=== PATIENT | female | born 1945 | race Caucasian/White ===

== ENCOUNTER 2017-07-09 10:54 | Day surgery (SDC) | payer MEDICARE, OTHER ==
[~2017-07-09 10:54] MED LIST: CEFAZOLIN 2 Gram 2 GM/50 ML BAG IVPB ONE; FAMOTIDINE 20MG TABLET PO ONE; METOCLOPRAMIDE 10 MG TABLET PO ONE
[2017-07-09] MEDS ORDERED: MIDAZOLAM HCL 2MG/2ML VIAL IV ONE (10:55)
[2017-07-09] MEDS ORDERED: METHYLPREDNISOLONE 40MG/VIAL IM ONE (10:55)
[2017-07-09] MEDS ORDERED: SUCCINYLCHOLINE 20 MG/ML 10ML IVP ONE (10:55)
[2017-07-09] MEDS ORDERED: ONDANSETRON HCL IV 4 MG/2 ML VIAL IVP ONE (10:55)
[2017-07-09] MEDS ORDERED: EPINEPHRINE 1 MG/ML AMPUL SQ ONE (10:55)
[2017-07-09] MEDS ORDERED: MORPHINE SULFATE PF 10MG/10ML VIAL IV ONE (10:55)
[2017-07-09] MEDS ORDERED: LIDOCAINE 2% MDV (20MG/ML) 20ML VIAL IV ONE (10:55)
[2017-07-09] MEDS ORDERED: SCOPOLAMINE 1 PATCH TDSY TD ONE (10:55)
[2017-07-09] MEDS ORDERED: FENTANYL PF 100MCG/2ML VIAL IV ONE (10:55)
[2017-07-09] MEDS ORDERED: PHENYLEPHRINE HCL 10 MG/ML VIAL IVP ONE (10:55)
[2017-07-09] MEDS ORDERED: METOCLOPRAMIDE HCL 10 MG/2 ML VIAL IVP ONE (10:55)
[2017-07-09] MEDS ORDERED: PROPOFOL 10 MG/ML VIAL IV ONE (10:55)
[2017-07-09] MEDS ORDERED: DESFLURANE 240 ML BTL INH ONE (10:55)
[2017-07-09] MEDS ORDERED: ROPIVACAINE HCL (NAROPIN) /PF 5MG/ML 20ML VIAL IV ONE (10:55)
[2017-07-09] MEDS ORDERED: DEXAMETHASONE 4 MG/ML 1ML VIAL IVP ONE (10:55)
[2017-07-09 11:18] LABS: BASO % 0.7 % (0-6); EOS % 6.4 % (0-6); GRAN % 48.1 % (47-80); HEMATOCRIT 45.6 % (35.0-47.0); LYMPH % 32.7 % (16-45); MEAN CELL VOLUME 87.5 fl (81-97); MEAN CORPUSCULAR HEMOGLOBIN 28.8 pg (27-33); MEAN CORPUSCULAR HGB CONC 32.9 g/dl (32-36); MEAN PLATELET VOLUME 9.7 fl (7.4-10.4); MONO % 12.1 % (0-9); PLATELET COUNT 223 K/uL (130-400); RED BLOOD COUNT 5.21 M/uL (3.80-5.40); RED CELL DISTRIBUTION WIDTH 13.7 % (11.5-14.5); WHITE BLOOD COUNT W/O DIFF 4.5 K/uL (4.2-12.2)
[2017-07-09 11:31] LABS: BLOOD UREA NITROGEN 14 mg/dL (8-23); CREATININE 0.6 mg/dL (0.5-0.9); EST GLOMERULAR FILTRATION RATE > 60 mL/min; GLUCOSE,RANDOM 99 mg/dL (74-109)
--- NOTE | 2017-07-10 18:51 | Operative Note ---
DATE: 07/09/17. PREOPERATIVE DIAGNOSIS: SEVERE IMPINGEMENT RIGHT SHOULDER. POSTOPERATIVE DIAGNOSES: 1. DIFFUSE SYNOVITIS OF THE RIGHT SHOULDER. 2. NEAR-COMPLETE TEAR OF THE LONG HEAD OF THE BICEPS TENDON. 3. 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 4. CARTILAGINOUS LOOSE BODIES RIGHT SHOULDER. 5. GRADE 3 CHONDROMALACIA OF THE GLENOID. 6. PROFOUND EXTERNAL IMPINGEMENT. 7. ADVANCED ARTHROSIS OF THE RIGHT DISTAL CLAVICLE. PROCEDURE: 1. RIGHT SHOULDER ARTHROSCOPY WITH COMPLETE SYNOVECTOMY AND INTERARTICULAR DEBRIDEMENT WITH CHONDROPLASTY AND REMOVAL OF MULTIPLE CARTILAGINOUS LOOSE BODIES AND DEBRIDEMENT OF THE FEMORAL HEAD. 2. RIGHT SHOULDER OPEN ACROMIOPLASTY, CA LIGAMENT RESECTION, SUBACROMIAL BURSECTOMY. 3. RIGHT CLAVICLE DISTAL CLAVICLE RESECTION. STAFF SURGEON: CANDACE ACEVEDO M.D. ANESTHESIA: GENERAL. PREPARATION: CHLORAPREP. INDIVIDUAL CONSIDERATIONS: NONE. PROCEDURE: The patient was taken to the Operating Room and placed supine on the operating table. She had a successful induction of a general anesthetic. She was then placed in a semi-seated beach chair position and her right arm and shoulder were prepped and draped in the usual fashion. Examination under anesthesia showed no instability. The patient had a posterior portal identified for arthroscopy. The skin was infiltrated with 0.75% Marcaine with Epinephrine. An #18 gauge spinal needle was placed in the joint and the joint was inflated with normal saline with a 60 mL syringe. A stab wound was made and a blunt trocar through the scope was easily placed in the joint and the joint was inflated with normal saline. An anterior accessory portal was then made in a retrograde fashion with a Wissinger amanda. The joint was irrigated out. She had diffuse synovitis, multiple large cartilaginous loose bodies, peeling cartilage off of the humeral head, along with grade 3 changes in the glenoid. The long head was ragged. The rotator cuff looked contused but was intact. I debrided the multiple incomplete tears of the long head of the biceps tendon, did a complete synovectomy, cleaned up the humeral head debriding off the areas of articular cartilage that were peeling off. After irrigation, the portals were closed with jordan. The patient had anterior portals to the subacromial space and distal clavicle. The skin was again infiltrated with 0.75% Marcaine with Epinephrine prior. Sharp dissection carried down through the skin and subcutaneous tissue. Small veins were coagulated with a Bovie. An anterior deltoid interval was developed. Care was taken not to split the deltoid more than about 4 cm distal to the anterior tip of the acromion to prevent injury to the axillary nerve. Once in the subacromial space, the patient had a huge spur in the acromion and large spurs extending from the distal clavicle. The deltoid was then taken subperiosteally off the anterior aspect of the acromion, over the top of the ataxiated ligament and off the anterior aspect of the highly degenerated distal clavicle. The CA ligament was resected. The distal clavicle was resected with an oscillating saw. An anterior acromioplasty was performed taking a little over 1 cm of bone with a spur extending posteriorly in a wedge to the spurs at the AC joint. The undersurface was smoothed with a rasp. An extremely dense and septated bursa was debrided out. I now had a good look at the rotator cuff, which looked contused but otherwise intact. After irrigation, the deltoid was reattached to the remaining acromion with multiple interrupted #2 Vicryl going directly through the bony acromion. Periosteal cuff of the distal clavicle was closed with running #1 Vicryl. The anterior deltoid interval was closed with a running #1 Vicryl. The subcutaneous was closed with 2-0 Plus Vicryl and the skin was closed with jordan. 15 mL of 0.75% Marcaine with Epinephrine along with 10 mg Morphine was injected into the subacromial space and a sterile Bulkee compressive dressing and sling were applied. The patient tolerated the procedures well. Needle and sponge counts were correct, estimated blood loss was minimal, and she was taken back to Recovery in good condition. There were no complications. JOB NUMBER: [id number] [facility]
== END 2017-07-09 16:35 | disposition home or self-care (01) ==
LOC: SUR 10:54
PROVIDERS: ATTEND Orthopaedic Surgery
DX: M75.111 Incomplete rotator cuff tear or rupture of right shoulder, not specified as traumatic (principal); M94.211 Chondromalacia, right shoulder; M65.811 Other synovitis and tenosynovitis, right shoulder; M75.41 Impingement syndrome of right shoulder; M19.011 Primary osteoarthritis, right shoulder; E11.9 Type 2 diabetes mellitus without complications; Z79.84 Long term (current) use of oral hypoglycemic drugs; E78.00 Pure hypercholesterolemia, unspecified
CPT/HCPCS: 29823; 23130; 01630; 64415; 85025; 80048; J2405; J3010; J0690; J2795; J0171; J0330; J1030; J2370; J2765